=== PATIENT | female | born 1985 | race Hispanic/Latino ===

== ENCOUNTER 2020-08-19 17:15 | Emergency (ER) | payer SELFPAY ==
--- NOTE | 2020-08-19 19:55 | RAD REPORT ---
EXAM DESCRIPTION: CT - Head Brain Wo Cont - 08/19/2020 7:46 pm CLINICAL HISTORY: HEADACHE COMPARISON: No comparisons TECHNIQUE: Axial 5 mm thick images of the head were obtained without IV contrast. All CT scans are performed using dose optimization technique as appropriate and may include automated exposure control or mA/KV adjustment according to patient size. FINDINGS: No intracranial hemorrhage, mass, edema or shift of mid-line structures. No acute infarcti on changes seen. No abnormal extra-axial fluid collections. Ventricles are normal. Mastoid air cells and visualized portions of the paranasal sinuses are clear. No acute bony findings. IMPRESSION: Negative non-contrast CT head examination.
[2020-08-19] MEDS ORDERED: NA CHLORIDE 0.9% 1,000 ML ONE (19:56)
[2020-08-19] MEDS ORDERED: METOCLOPRAMIDE 10 MG/2mL INJ ONE (19:56)
[2020-08-19] MEDS ORDERED: DIPHENHYDRAMINE 50 MG/ML VIAL ONE (19:56)
--- NOTE | 2020-08-19 20:22 | RAD REPORT ---
EXAM DESCRIPTION: RAD - Chest Pa And Lat (2 Views) - 08/19/2020 7:55 pm CLINICAL HISTORY: COUGH COMPARISON: None TECHNIQUE: Frontal and lateral views of the chest were obtained. FINDINGS: The lungs are clear. Heart size is normal and central vasculature is within normal limit s. No pleural effusion or pneumothorax seen. No acute bony finding noted. No aortic abnormality. IMPRESSION: No acute cardiopulmonary process.
[2020-08-19 20:36] LABS: Protime INR 1.13
[2020-08-19 20:41] LABS: Absolute Lymphocytes (CBC) 0.7 K/uL (0.7-4.9); Basophils % 0.4 % (0-1.3); Hematocrit 37.6 % (36.0-45.0); Lymphocytes % 10.3 % (15.3-44.8); MPV 9.1 fL (7.6-11.3); RBC Red Blood Cell Count 4.61 M/uL (3.86-4.86)
[2020-08-19 20:45] LABS: SARS-COV-2 RT PCR POSITIVE (NEGATIVE)
[2020-08-19 20:46] LABS: BUN Blood Urea Nitrogen 13 mg/dL (7-18); Bicarbonate 27 mmol/L (21-32); Glucose Level 97 mg/dL (74-106); Potassium 3.7 mmol/L (3.5-5.1); Sodium Level 137 mmol/L (136-145)
--- NOTE | 2020-08-19 21:14 | EDPHYS ---
Physician Documentation [facility] Name: Fang Ewing Age: 34 yrs Sex: Female : 1985 Arrival Date: 08/19/2020 Time: 17:16 Bed 27 Private MD: ED Physician Santi Garza HPI: 08/19 19:40 This 34 yrs old Female presents to ER via Ambulatory with complaints of Chest cp Pain, Cough, Headache. 19:40 The patient complains of pain to the top of head. cp 19:40 The patient describes the headache as aching, constant. Onset: The symptoms/episode cp began/occurred 3 day(s) ago. The patient or guardian reports cough, with productive sputum, that is purulent. Onset: The symptoms/episode began/occurred 3 day(s) ago. Headache History: The patient has had previous headaches and this one is different than previous episodes. Associated signs and symptoms: Pertinent positives: chest pain, with cough, fever, sore throat, Pertinent negatives: diarrhea, vomiting. 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 - Social history:: Smoking status: Patient denies any tobacco usage or history of. ROS: 19:45 Constitutional: Positive for body aches, chills, Negative for fever, poor PO intake. cp 19:45 Eyes: Positive for photophobia, Negative for discharge, redness. cp 19:45 ENT: Positive for sore throat. 19:45 Neck: Negative for pain with movement, pain at rest, stiffness. 19:45 Cardiovascular: Positive for chest pain, with cough, Negative for edema, palpitations. 19:45 Respiratory: Positive for cough, Negative for wheezing. 19:45 Abdomen/GI: Negative for abdominal pain, nausea, vomiting, and diarrhea. 19:45 Neuro: Positive for headache, Negative for altered mental status, weakness. 19:45 All other systems are negative. Exam: 19:50 Constitutional: The patient appears in no acute distress, alert, awake, cp non-diaphoretic, non-toxic, well developed, well nourished, obese. 19:50 Head/Face: Normocephalic, atraumatic. cp 19:50 Eyes: Periorbital structures: appear normal, Pupils: equal, round, and reactive to cp light and accomodation, Extraocular movements: intact throughout, Conjunctiva: normal, no exudate, no injection, Sclera: no appreciated abnormality, Lids and lashes: appear normal, bilaterally. 19:50 ENT: External ear(s): are unremarkable, Ear canal(s): are normal, clear, TM's: cp dullness, bilaterally, Nose: is normal, Mouth: Lips: moist, Oral mucosa: moist, Posterior pharynx: Airway: no evidence of obstruction, patent, Tonsils: no enlargement, no exudate, swelling, is not appreciated, erythema, that is mild, exudate, is not appreciated. 19:50 Neck: ROM/movement: is normal, is supple, without pain, no range of motions limitations, no meningismus, no nuchal rigidity, Lymph nodes: no appreciated lymphadenopathy. 19:50 Chest/axilla: Inspection: normal. 19:50 Cardiovascular: Rate: tachycardic, Rhythm: regular, Edema: is not appreciated, JVD: is not appreciated. 19:50 Respiratory: the patient does not display signs of respiratory distress, Respirations: normal, no use of accessory muscles, no retractions, labored breathing, is not present, Breath sounds: bronchial sounds, that are mild, are heard diffusely, decreased breath sounds, are not appreciated, stridor, is not appreciated, + upper airway congestion. wheezing: is not appreciated. 19:50 Abdomen/GI: Inspection: abdomen appears normal, Palpation: abdomen is soft and non-tender, in all quadrants. 19:50 Back: pain, is absent, ROM is normal. 19:50 Skin: cellulitis, is not appreciated, no rash present. 19:50 Neuro: Orientation: to person, place \T\ time. Mentation: is normal, Cerebellar function: is grossly normal, Motor: moves all fours, strength is normal, Sensation: is normal. Vital Signs: 17:42 BP 127 / 93; Pulse 118; Resp 20; Temp 99.1(TE); Pulse Ox 100% on R/A; Weight 99.34 kg; tw2 Height 5 ft. 0 in. (152.40 cm) (R); Pain 9/10; 20:20 BP 131 / 76; Pulse 106; Resp 16; Pulse Ox 99% on R/A; jm8 21:50 BP 124 / 78; Pulse 94; Resp 16; Pulse Ox 99% on R/A; jm8 17:42 Body Mass Index 42.77 (99.34 kg, 152.40 cm) tw2 17:42 headache tw2 MDM: 19:31 Patient medically screened. cp 20:00 Differential diagnosis: bronchitis, flu, URI, meningitis, meningoencephalitis, cp migraine, tension headache. 21:12 Data reviewed: vital signs, nurses notes, lab test result(s), radiologic studies, CT cp scan, plain films. Test interpretation: by ED physician or midlevel provider: plain radiologic studies. Counseling: I had a detailed discussion with the patient and/or guardian regarding: the historical points, exam findings, and any diagnostic results supporting the discharge/admit diagnosis, lab results, radiology results, to return to the emergency department if symptoms worsen or persist or if there are any questions or concerns that arise at home. Response to treatment: the patient's symptoms have markedly improved after treatment, VSS. Patient observed resting comfortably in exam room and reports headache and cough improved. Patient appears non-toxic and no signs of respiratory distress, and as a result, I will discharge patient. 08/19 19:34 Order name: Strep cp 08/19 19:34 Order name: CBC with Diff; Complete Time: 20:47 cp 08/19 20:47 Interpretation: Normal except: TREVOR% 82.1; LYM% 10.3. cp 08/19 19:34 Order name: BMP; Complete Time: 20:47 cp 08/19 20:49 Interpretation: Reviewed. 08/19 19:34 Order name: PT-INR; Complete Time: 20:47 cp 08/19 20:48 Interpretation: Reviewed. 08/19 19:34 Order name: XRAY Chest Pa And Lat (2 Views); Complete Time: 20:24 cp 08/19 20:24 Interpretation: Report reviewed. 08/19 19:34 Order name: CT Head Brain wo Cont; Complete Time: 20:15 cp 08/19 20:15 Interpretation: Report reviewed. 08/19 20:25 Order name: COVID-19/FLU A+B; Complete Time: 20:47 EDMS 08/19 21:00 Order name: Throat Culture EDHI Administered Medications: Discontinued: NS 0.9% 1000 ml IV at 1 bolus Per protocol; 1000 mL bolus 20:13 Drug: Benadryl (diphenhydrAMINE) 25 mg Route: IVP; Site: right antecubital; jm8 21:39 Follow up: Response: No adverse reaction; Pain is decreased jm8 20:14 Drug: NS 0.9% 1000 ml Route: IV; Rate: 1 bolus; Site: right antecubital; jm8 20:14 Drug: Reglan (metoCLOPramide) 10 mg Route: IVP; Site: right antecubital; jm8 21:39 Follow up: Response: No adverse reaction; Pain is decreased 8 21:07 Drug: SOLU-Medrol (methylPrednisoLONE) 125 mg Route: IVP; Site: right antecubital; jm8 21:39 Follow up: Response: No adverse reaction [facility] Disposition: 22:00 Chart complete. 08/20 06:36 Co-signature as Attending Physician, Santi Garza MD. 7 Disposition: 08/19/20 21:13 Discharged to Home. Impression: Headache, Coronavirus infection, unspecified. - Condition is Stable. - Discharge Instructions: Migraine Headache, COVID-19. - Prescriptions for Prednisone 20 mg Oral Tablet - take 1 tablet by ORAL route every 12 hours for 5 days then 1/2 tablet every twelve hours for 5 days; 15 tablet. Albuterol Sulfate 90 mcg/actuation - inhale 1-2 puff by INHALATION route every 4-6 hours; 1 Inhaler. Tessalon Perles 100 mg Oral Capsule - take 2 capsule by ORAL route every 8 hours As needed; 30 capsule. Zithromax Z- Fernando 250 mg Oral Tablet - take 1 tablet by ORAL route as directed for 5 days Day 1 - take two (2) tablets one time. Day 2, 3, 4 , 5 take one (1) tablet once daily.; 6 tablet. - Medication Reconciliation Form, Thank You Letter, Antibiotic Education, Prescription Opioid Use form. - Follow up: Private Physician; When: 2 - 3 days; Reason: Worsening of condition. - Problem is new. - Symptoms have improved. Signatures: Dispatcher [employer] EDHI Moisés Villar PA PA cp Kimberlyn Hutson, RN RN tw2 Santi Garza MD MD mh7 Chidi Stone RN RN jm8 Corrections: (The following items were deleted from the chart) 08/19 19:32 17:48 Influenza Screen (A ordered. EDHI EDMS 19: 17:49 Influenza Screen (A \T\ B)+BA.LAB.BRZ ordered. [facility] EDHI 21:52 21:13 08/19/2020 21:13 Discharged to Home. Impression: Headache; Coronavirus infection, jm8 unspecified. Condition is Stable. Forms are Medication Reconciliation Form, Thank You Letter, Antibiotic Education, Prescription Opioid Use. Follow up: Private Physician; When: 2 - 3 days; Reason: Worsening of condition. Problem is new. Symptoms have improved. cp
--- NOTE | 2020-08-19 21:14 | ER ---
Nurse's Notes [facility] Name: Fang Ewing Age: 34 yrs Sex: Female : 1985 Arrival Date: 08/19/2020 Time: 17:16 Bed 27 Private MD: Diagnosis: Headache;Coronavirus infection, unspecified Presentation: 08/19 17:42 Chief complaint: Patient states: i have a headache since Sunday night, i am congested, tw2 if i take a deep breath it hurts my chest, my body aches, i feel super hot but then i get chills. Coronavirus screen: chills, cough unrelated to allergies, muscle pain, runny nose, shaking with chills, Client presents with at least one sign or symptom that may indicate coronavirus-19. Standard/surgical mask placed on the client. Provider contacted for isolation considerations. Ebola Screen: Patient denies travel to an Ebola-affected area in the 21 days before illness onset. Initial Sepsis Screen: Does the patient meet any 2 criteria? Yes No. Patient's initial sepsis screen is negative. Does the patient have a suspected source of infection? No. Patient's initial sepsis screen is negative. Risk Assessment: Do you want to hurt yourself or someone else? Patient reports no desire to harm self or others. Onset of symptoms was August 19, 2020. 17:42 Method Of Arrival: Ambulatory tw2 17:42 Acuity: BAR 3 tw2 Triage Assessment: 17:45 General: Appears in no apparent distress. uncomfortable, obese, well groomed, Behavior tw2 is calm, cooperative, appropriate for age. Pain: Complains of pain in forehead. Neuro: Reports headache. Cardiovascular: Reports cough and "pain with deep breath". Respiratory: Reports cough that is non-productive. 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 - Social history:: Smoking status: Patient denies any tobacco usage or history of. Screenin:33 Abuse screen: Denies threats or abuse. Denies injuries from another. Nutritional jm8 screening: No deficits noted. Tuberculosis screening: No symptoms or risk factors identified. Fall Risk None identified. Assessment: 19:22 General: Appears in no apparent distress. uncomfortable, Behavior is calm, cooperative, jm8 appropriate for age. Pain: Complains of pain in face and chest and forehead Pain currently is 10 out of 10 on a pain scale. Pain began 2 days ago Also complains of photophobia. Neuro: Level of Consciousness is awake, alert, obeys commands, Oriented to person, place, time, Reports headache frontal area. Cardiovascular: No deficits noted. Cardiovascular: Reports chest pain. Respiratory: Reports shortness of breath cough that is non-productive, Airway is patent Trachea midline Respiratory effort is even, unlabored. Respiratory: Reports chills. GI: No deficits noted. : No deficits noted. EENT: No deficits noted. Derm: No deficits noted. Musculoskeletal: No deficits noted. 19:34 Pain: Pain does not radiate. jm8 21:12 Reassessment: Patient appears in no apparent distress at this time. No changes from jm8 previously documented assessment. Patient and/or family updated on plan of care and expected duration. Pain level reassessed. Patient states feeling better. Patient states symptoms have improved. Vital Signs: 17:42 BP 127 / 93; Pulse 118; Resp 20; Temp 99.1(TE); Pulse Ox 100% on R/A; Weight 99.34 kg; tw2 Height 5 ft. 0 in. (152.40 cm) (R); Pain 9/10; 20:20 BP 131 / 76; Pulse 106; Resp 16; Pulse Ox 99% on R/A; jm8 21:50 BP 124 / 78; Pulse 94; Resp 16; Pulse Ox 99% on R/A; jm8 17:42 Body Mass Index 42.77 (99.34 kg, 152.40 cm) tw2 17:42 headache tw2 ED Course: 17:16 Patient arrived in ED. mr 17:44 Triage completed. tw2 17:46 Arm band placed on. tw2 19:17 Moisés Villar PA is PHCP. cp 19:17 Santi Garza MD is Attending Physician. cp 19:33 Patient maintains SpO2 saturation greater than 95% on room air. jm8 19:34 Patient has correct armband on for positive identification. Bed in low position. Call jm8 light in reach. Side rails up X2. Adult w/ patient. patient monitor on. Pulse ox on. NIBP on. 19:46 CT Head Brain wo Cont In Process Unspecified. EDMS 19:52 XRAY Chest Pa And Lat (2 Views) In Process Unspecified. EDMS 20:14 PT-INR Sent. jm8 20:14 BMP Sent. jm8 20:14 CBC with Diff Sent. jm8 20:14 Strep Sent. jm8 20:15 Inserted saline lock: 20 gauge in right antecubital area, using aseptic technique. jm8 21:51 IV discontinued, intact, bleeding controlled, No redness/swelling at site. jm8 21:51 No provider procedures requiring assistance completed. jm8 Administered Medications: Discontinued: NS 0.9% 1000 ml IV at 1 bolus Per protocol; 1000 mL bolus 20:13 Drug: Benadryl (diphenhydrAMINE) 25 mg Route: IVP; Site: right antecubital; jm8 21:39 Follow up: Response: No adverse reaction; Pain is decreased jm8 20:14 Drug: NS 0.9% 1000 ml Route: IV; Rate: 1 bolus; Site: right antecubital; jm8 20:14 Drug: Reglan (metoCLOPramide) 10 mg Route: IVP; Site: right antecubital; jm8 21:39 Follow up: Response: No adverse reaction; Pain is decreased jm8 21:07 Drug: SOLU-Medrol (methylPrednisoLONE) 125 mg Route: IVP; Site: right antecubital; jm8 21:39 Follow up: Response: No adverse reaction [facility] Outcome: 21:13 Discharge ordered by . genet 21:51 Discharged to home jm8 21:51 Condition: good 21:51 Discharge instructions given to patient, family, Instructed on discharge instructions, follow up and referral plans. medication usage, Demonstrated understanding of instructions, follow-up care, medications, Prescriptions given X 4. 21:52 Patient left the ED. jm8 Signatures: Dispatcher [employer] MELANIE Kathryn Baig Miosés Ramos PA PA cp Wise, Tara, RN RN tw2 Chidi Stone RN RN jm8
[2020-08-19] MEDS ORDERED: METHYLPREDNISOLONE 125 MG INJ ONE (21:25)
[2020-08-19 22:08] VITALS: TEMP 99.1
[2020-08-19 22:09] VITALS: O2SAT 99
[2020-08-19 22:10] VITALS: BP 124/78
== END 2020-08-19 21:52 | disposition home or self-care (01) ==
LOC: ER 17:15
DX: U07.1 COVID-19 (principal)
CPT/HCPCS: 0240U; 36415; 70450; 71046; 80048; 85025; 85610; 87070; 87081; 96374; 96375; 99285; J1200; J2765; J2930; J7030

== ENCOUNTER 2020-08-24 14:43 | Emergency (ER) | payer SELFPAY ==
--- NOTE | 2020-08-24 17:50 | RAD REPORT ---
EXAM DESCRIPTION: Edy Single View08/24/2020 4:47 pm CLINICAL HISTORY: Shortness of breath COMPARISON: none FINDINGS: [id number] bilateral lung opacities. The heart is normal size IMPRESSION: Mild to moderate bilateral pulmonary opacities probably pneumonia
[2020-08-24 20:11] LABS: Absolute Lymphocytes (CBC) 0.6 K/uL (0.7-4.9); Basophils % 0.3 % (0-1.3); Hematocrit 38.2 % (36.0-45.0); MPV 8.5 fL (7.6-11.3); RBC Red Blood Cell Count 4.73 M/uL (3.86-4.86)
[2020-08-24] MEDS ORDERED: dexAMETHasone 10 MG/ML VIAL ONE (20:22)
[2020-08-24 20:23] LABS: Potassium 3.8 mmol/L (3.5-5.1)
--- NOTE | 2020-08-24 20:58 | RAD REPORT ---
EXAM DESCRIPTION: CT - Chest For Pe Angio - 08/24/2020 8:49 pm CLINICAL HISTORY: Shortness of breath COMPARISON: August 24, 2020 chest x-ray TECHNIQUE: Dynamically enhanced axial 3 mm thick images of the chest were obtained during administra tion of <100> mL Isovue 370 IV contrast. Coronal and oblique reconstruction images were generated and reviewed. Exam utilizes a protocol for optimal evaluation of pulmonary arterial tree. Maximum intensity projections 3D imaging was utilized All CT scans are performed using dose optimization technique as appropriate and may include automated exposure control or mA/KV adjustment according to patient size. FINDINGS: A pulmonary embolus is not seen. A thoracic aortic aneurysm is not noted. A pleural effusion is not seen. A pericardial effusion is not seen. Mild to moderate bilateral ground-glass opacities IMPRESSION: Negative for a pulmonary embolism. Mild to moderate bilateral ground-glass opacities within the lungs may indicate Covid pneumonia
--- NOTE | 2020-08-24 21:08 | ER ---
Nurse's Notes [facility] Name: Fang Ewing Age: 34 yrs Sex: Female : 1985 Arrival Date: 08/24/2020 Time: 14:44 Bed 2 Private MD: Diagnosis: Coronavirus infection, unspecified;Viral pneumonia, unspecified Presentation: 08/24 15:08 Chief complaint: Patient states: it got worse about 3 hours Spouse and/or significant tw2 other states: o2 has been 88% \\T\\ 91% all day. Coronavirus screen: Client presents with at least one sign or symptom that may indicate coronavirus-19. Standard/surgical mask placed on the client. Provider contacted for isolation considerations. Client reports previous positive COVID test result. Date of collection: August 19, 2020. Ebola Screen: Patient denies travel to an Ebola-affected area in the 21 days before illness onset. Initial Sepsis Screen: Does the patient meet any 2 criteria? RR > 20 per min. HR > 90 bpm. Yes Does the patient have a suspected source of infection? Yes: Productive cough/pneumonia Other: + COVID on . Risk Assessment: Do you want to hurt yourself or someone else? Patient reports no desire to harm self or others. Onset of symptoms was August 24, 2020. 15:08 Method Of Arrival: Wheelchair tw2 15:08 Acuity: BAR 2 tw2 15:11 Chief complaint: Patient states: i was just here Sunday and the inhaler helps but i tw2 just have gotten worse. Triage Assessment: 15:08 General: Appears in no apparent distress. obese, well groomed, Behavior is anxious. tw2 Pain: Denies pain. Respiratory: Reports shortness of breath at rest on exertion cough that is non-productive, Onset: The symptoms/episode began/occurred "3 hours ago it got worse", the patient has moderate shortness of breath. 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 - Social history:: Smoking status: . Screenin:56 Abuse screen: Denies threats or abuse. Nutritional screening: No deficits noted. ea Tuberculosis screening: No symptoms or risk factors identified. Fall Risk None identified. Assessment: 19:55 General: Appears uncomfortable, Behavior is restless. Pain: Denies pain. Neuro: Level ea of Consciousness is awake, alert, obeys commands, Oriented to person, place, time. Cardiovascular: Patient's skin is warm and dry. Respiratory: Airway is patent Respiratory effort is even, labored, Respiratory pattern is regular, symmetrical. Derm: Skin is pink, warm \\T\\ dry. 20:59 Reassessment: Patient and/or family updated on plan of care and expected duration. Pain ad5 level reassessed. Pt reports improvement in s/s. Resp with ease at this time. VSS. HRR on CM, skin pwd. Pt denies needs or c/o at this time. Patient states feeling better. Pain: Denies pain. 21:00 Respiratory: Breath sounds are clear. ad5 21:00 Cardiovascular: Rhythm is sinus rhythm. ad5 21:08 Reassessment: Pt ambulated approximately 50 ft, O2 sats after ambulation decreased to mg2 91% RA. 21:43 Reassessment: Patient appears in no apparent distress at this time. No changes from ad5 previously documented assessment. Pt denies new or worsening c/o. Resp with ease, skin pwd. HRR on CM. S.O. at bedside. Patient states symptoms have improved. Vital Signs: 15:08 BP 110 / 86; Pulse 128; Resp 22; Temp 97.9(TE); Pulse Ox 98% on R/A; tw2 17:51 Pulse 108; Resp 19; Pulse Ox 97% on R/A; tw2 20:07 BP 119 / 89; Pulse 111; Resp 22; Pulse Ox 96% on R/A; mg2 21:00 BP 118 / 58; Pulse 98; Resp 18; Pulse Ox 95% on R/A; ad5 21:08 Resp 25; Pulse Ox 91% on R/A; mg2 21:14 BP 121 / 69; Pulse 73; Resp 25; Pulse Ox 99% ; mg2 21:45 BP 113 / 61; Pulse 99; Resp 16; Pulse Ox 96% on R/A; ad5 17:51 pt states "i am feeling better and have had my xray done", provider notified. tw2 ED Course: 14:44 Patient arrived in ED. am2 15:10 Triage completed. tw2 15:10 Arm band placed on. tw2 15:26 Kelsey Mays FNP-C is PHCP. kb 15:26 Moisés Vallejo MD is Attending Physician. kb 16:46 Chest Single View XRAY In Process Unspecified. EDMS 19:49 Kelsey Mays FNP-C is PHCP. kb 19:49 Moisés Vallejo MD is Attending Physician. kb 19:52 Maury Arias, FRANCES is Primary Nurse. mg2 19:56 Patient has correct armband on for positive identification. Bed in low position. Call ea light in reach. 20:06 No provider procedures requiring assistance completed. Inserted saline lock: 20 gauge mg2 in right antecubital area, using aseptic technique. Blood collected. by FRANCES Small. 20:49 CT Chest For PE Angio In Process Unspecified. EDMS 21:12 Primary Nurse role handed off by Maury Arias RN ad5 21:12 Geovanny Henry is Primary Nurse. ad5 21:44 IV discontinued, intact, bleeding controlled, No redness/swelling at site. Pressure ad5 dressing applied. Administered Medications: 20:06 Drug: Decadron - Dexamethasone 10 mg Route: IVP; Site: right antecubital; mg2 21:45 Follow up: BP 113 / 61; Pulse 99 bpm; Resp 16 bpm; Pulse Ox 96% RA ad5 21:45 Follow up: Response: No adverse reaction ad5 Outcome: 21:07 Discharge ordered by MD. kb 21:44 Discharged to home ambulatory, with significant other. ad5 21:44 Condition: stable 21:44 Discharge instructions given to patient, Instructed on discharge instructions, follow up and referral plans. Demonstrated understanding of instructions, follow-up care. 21:46 Patient left the ED. ad5 Signatures: Dispatcher [employer] EDNE Kelsey Mays FNP-C FNP-Kimberlyn Vázquez RN RN tw2 Cecilia Ron am2 Joi Pope RN RN Maury Arias RN RN mg2 Geovanny Henry ad5 Corrections: (The following items were deleted from the chart) 15:12 15:08 Initial Sepsis Screen: Does the patient meet any 2 criteria? No. Patient's tw2 initial sepsis screen is negative. Does the patient have a suspected source of infection? No. Patient's initial sepsis screen is negative. tw2 21:14 21:08 Pulse Ox 91% RA; mg2 mg2
--- NOTE | 2020-08-24 21:08 | EDPHYS ---
Physician Documentation [facility] Name: Fang Ewing Age: 34 yrs Sex: Female : 1985 Arrival Date: 08/24/2020 Time: 14:44 Bed 2 Private MD: ED Physician Moisés Vallejo HPI: 08/24 21:05 This 34 yrs old Female presents to ER via Wheelchair with complaints of kb Breathing Difficulty, Shortness Of Breath, low O2. 21:05 The patient has shortness of breath at rest, with light activity. Onset: The kb symptoms/episode began/occurred 4 day(s) ago, and became worse today. Duration: The symptoms are continuous. The patient's shortness of breath is aggravated by exertion, is alleviated by nothing. Associated signs and symptoms: Pertinent positives: non-productive cough. Severity of symptoms: At their worst the symptoms were moderate in the emergency department the symptoms are unchanged. The patient has not experienced similar symptoms in the past. The patient has been recently seen by a physician:. Pt reports she was diagnosed with covid 4 days ago. Shortness of breath got worse today. . 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 - Social history:: Smoking status: . ROS: 21:05 Cardiovascular: Negative for chest pain, palpitations, and edema, Abdomen/GI: Negative kb for abdominal pain, nausea, vomiting, diarrhea, and constipation, MS/Extremity: Negative for injury and deformity, Skin: Negative for injury, rash, and discoloration, Neuro: Negative for headache, weakness, numbness, tingling, and seizure. 21:05 Constitutional: Positive for malaise. 21:05 Respiratory: Positive for cough, dyspnea on exertion, shortness of breath. Exam: 21:05 Constitutional: This is a well developed, well nourished patient who is awake, alert, kb and in no acute distress. Head/Face: Normocephalic, atraumatic. Cardiovascular: Regular rate and rhythm with a normal S1 and S2. No gallops, murmurs, or rubs. No pulse deficits. Respiratory: Respirations even and unlabored. No increased work of breathing, no retractions or nasal flaring. Abdomen/GI: Soft, non-tender. No distention Skin: Warm, dry with normal turgor. Normal color. MS/ Extremity: Pulses equal, no cyanosis. Neurovascular intact. Full, normal range of motion. Neuro: Awake and alert, GCS 15, oriented to person, place, time, and situation. Moves all extremities. Normal gait. Vital Signs: 15:08 BP 110 / 86; Pulse 128; Resp 22; Temp 97.9(TE); Pulse Ox 98% on R/A; tw2 17:51 Pulse 108; Resp 19; Pulse Ox 97% on R/A; tw2 20:07 BP 119 / 89; Pulse 111; Resp 22; Pulse Ox 96% on R/A; mg2 21:00 BP 118 / 58; Pulse 98; Resp 18; Pulse Ox 95% on R/A; ad5 21:08 Resp 25; Pulse Ox 91% on R/A; mg2 21:14 BP 121 / 69; Pulse 73; Resp 25; Pulse Ox 99% ; mg2 21:45 BP 113 / 61; Pulse 99; Resp 16; Pulse Ox 96% on R/A; ad5 17:51 pt states "i am feeling better and have had my xray done", provider notified. tw2 MDM: 19:49 Patient medically screened. kb 21:05 Data reviewed: vital signs, nurses notes. Data interpreted: Pulse oximetry: on room air kb is 96 %. Interpretation: normal. Counseling: I had a detailed discussion with the patient and/or guardian regarding: the historical points, exam findings, and any diagnostic results supporting the discharge/admit diagnosis, lab results, radiology results, the need for outpatient follow up, a family practitioner, to return to the emergency department if symptoms worsen or persist or if there are any questions or concerns that arise at home. 08/24 19:50 Order name: CBC with Diff kb 08/24 19:50 Order name: Basic Metabolic Panel kb 08/24 15:26 Order name: Chest Single View XRAY; Complete Time: 17:56 kb 08/24 19:51 Order name: CBC with Automated Diff; Complete Time: 20:18 EDMS 08/24 19:51 Order name: Basic Metabolic Panel; Complete Time: 20:24 EDMS 08/24 20:01 Order name: CT Chest For PE Angio; Complete Time: 21:02 kb 08/24 19:50 Order name: IV Start; Complete Time: 20:02 kb Administered Medications: 20:06 Drug: Decadron - Dexamethasone 10 mg Route: IVP; Site: right antecubital; mg2 21:45 Follow up: BP 113 / 61; Pulse 99 bpm; Resp 16 bpm; Pulse Ox 96% RA ad5 21:45 Follow up: Response: No adverse reaction ad5 Disposition: 08/25 11:24 Co-signature as Attending Physician, Moisés Vallejo MD I agree with the assessment and [facility]. Disposition: 08/24/20 21:07 Discharged to Home. Impression: Coronavirus infection, unspecified, Viral pneumonia, unspecified. - Condition is Stable. - Discharge Instructions: Viral Respiratory Infection, [id number]-[id number], COVID-19. - Medication Reconciliation Form, Thank You Letter, Antibiotic Education, Prescription Opioid Use form. - Follow up: Emergency Department; When: As needed; Reason: Worsening of condition. Follow up: Private Physician; When: 2 - 3 days; Reason: Recheck today's complaints, Continuance of care, Re-evaluation by your physician. Signatures: Dispatcher [employer] EDAR Kelsey Mays, JANET-C JANET-Moisés Garcia MD MD cha Wise, Tara, RN RN tw2 Maury Arias RN RN mg2 Geovanny Henry ad5 Corrections: (The following items were deleted from the chart) 08/24 21:08 21:07 08/24/2020 21:07 Discharged to Home. Impression: Coronavirus infection, kb unspecified. Condition is Stable. Forms are Medication Reconciliation Form, Thank You Letter, Antibiotic Education, Prescription Opioid Use. Follow up: Emergency Department; When: As needed; Reason: Worsening of condition. Follow up: Private Physician; When: 2 - 3 days; Reason: Recheck today's complaints, Continuance of care, Re-evaluation by your physician. kb 21:08 21:08 08/24/2020 21:07 Discharged to Home. Impression: Coronavirus infection, kb unspecified; Pneumonia, unspecified organism. Condition is Stable. Forms are Medication Reconciliation Form, Thank You Letter, Antibiotic Education, Prescription Opioid Use. Follow up: Emergency Department; When: As needed; Reason: Worsening of condition. Follow up: Private Physician; When: 2 - 3 days; Reason: Recheck today's complaints, Continuance of care, Re-evaluation by your physician. kb 21:46 21:08 08/24/2020 21:07 Discharged to Home. Impression: Coronavirus infection, ad5 unspecified; Viral pneumonia, unspecified. Condition is Stable. Discharge Instructions: Viral Respiratory Infection, [id number], COVID-19. Forms are Medication Reconciliation Form, Thank You Letter, Antibiotic Education, Prescription Opioid Use. Follow up: Emergency Department; When: As needed; Reason: Worsening of condition. Follow up: Private Physician; When: 2 - 3 days; Reason: Recheck today's complaints, Continuance of care, Re-evaluation by your physician. kb
[2020-08-24 22:12] VITALS: TEMP 97.9
[2020-08-24 22:21] VITALS: BP 113/61; O2SAT 96
== END 2020-08-24 21:46 | disposition home or self-care (01) ==
LOC: ER 14:43
DX: U07.1 COVID-19 (principal); J12.82 Pneumonia due to coronavirus disease 2019
CPT/HCPCS: 36415; 71045; 71275; 80048; 85025; 96374; 99284; J1100; Q9967

== ENCOUNTER 2022-11-18 04:30 | Emergency (ER) | payer SELFPAY ==
[2022-11-18 05:04] LABS: Absolute Lymphocytes (CBC) 1.6 K/uL (0.7-4.9); Hematocrit 37.8 % (36.0-45.0); MCV 81.6 fL (80-100); MPV 8.5 fL (7.6-11.3); RBC Red Blood Cell Count 4.63 M/uL (3.86-4.86)
[2022-11-18 05:24] LABS: ALT/SGPT 30 U/L (13-56); AST/SGOT 6 U/L (15-37); Albumin 3.3 g/dL (3.4-5.0); Alkaline Phosphatase 130 U/L (45-117); BUN Blood Urea Nitrogen 17 mg/dL (7-18); Bicarbonate 29 mEq/L (21-32); Bilirubin Total 0.2 mg/dL (0.2-1.0); Glomerular Filtration Rate 118 ml/min (=/>90); Glucose Level 113 mg/dL (74-106); Magnesium 2.3 mg/dL (1.6-2.4); NT PRO-BNP 29 pg/mL (<125); Potassium 3.5 mEq/L (3.5-5.1); Protein, Total 7.5 g/dL (6.4-8.2); Sodium Level 139 mEq/L (136-145)
[2022-11-18] MEDS ORDERED: NA CHLORIDE 0.9% 1,000 ML ONE (05:24)
[2022-11-18 05:26] LABS: Bilirubin Direct < 0.1 mg/dL (0-0.2); Bilirubin Indirect, Calculated ND mg/dL (0.2-0.8)
[2022-11-18 05:27] LABS: Troponin High Sensitivity < 3.0 pg/mL (<58.9)
[2022-11-18 05:47] LABS: Arterial Blood Carboxyhemoglob 0.8 % (0-1.5); Blood Gas Oxyhemoglobin 93.9 % (94-97); Blood O2 Saturation 96.2 % (92-98.5)
--- NOTE | 2022-11-18 06:48 | EDPHYS ---
Physician Documentation [facility] Name: Fang Ewing Age: 36 yrs Sex: Female : 1985 Arrival Date: 11/18/2022 Time: 04:30 Bed 6 Private MD: ED Physician Phil Gamez HPI: 11/18 05:35 This 36 yrs old Female presents to ER via EMS with complaints of Syncope. rt 05:35 Patient presents to the ED with a syncopal event. Patient felt weak, somewhat dizzy at rt about 11. She reported mild headache at that time. Just prior to arrival, patient has syncopal event, unclear how long she has been out for. Was reportedly having some twitching spells associated with that. Patient had subsequent return to baseline mental status. States that she feels well other than feeling mildly weak. Symptoms are moderate severity, no other aggravating alleviating factors. 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 - Social history:: Smoking status: Reported history of juuling and/or vaping. - Family history:: not pertinent. ROS: 05:35 Constitutional: Negative for fever, chills, and weight loss, Cardiovascular: Negative rt for chest pain, palpitations, and edema, Respiratory: Negative for shortness of breath, cough, wheezing, and pleuritic chest pain, Abdomen/GI: Negative for abdominal pain, nausea, vomiting, diarrhea, and constipation, MS/Extremity: Negative for injury and deformity, Skin: Negative for injury, rash, and discoloration, Psych: Negative for depression, anxiety, suicide ideation, homicidal ideation, and hallucinations. 05:35 Neuro: Positive for headache, syncope. Exam: 05:35 Constitutional: This is a well developed, well nourished patient who is awake, alert, rt and in no acute distress. Neck: Trachea midline, no thyromegaly or masses palpated, and no cervical lymphadenopathy. Supple, full range of motion without nuchal rigidity, or vertebral point tenderness. No Meningismus. Chest/axilla: Normal chest wall appearance and motion. Nontender with no deformity. No lesions are appreciated. Cardiovascular: Regular rate and rhythm with a normal S1 and S2. No gallops, murmurs, or rubs. Normal PMI, no JVD. No pulse deficits. Respiratory: Lungs have equal breath sounds bilaterally, clear to auscultation and percussion. No rales, rhonchi or wheezes noted. No increased work of breathing, no retractions or nasal flaring. Abdomen/GI: Soft, non-tender, with normal bowel sounds. No distension or tympany. No guarding or rebound. No evidence of tenderness throughout. Back: No spinal tenderness. No costovertebral tenderness. Full range of motion. Skin: Warm, dry with normal turgor. Normal color with no rashes, no lesions, and no evidence of cellulitis. MS/ Extremity: Pulses equal, no cyanosis. Neurovascular intact. Full, normal range of motion. Neuro: Awake and alert, GCS 15, oriented to person, place, time, and situation. Cranial nerves II-XII grossly intact. Motor strength 5/5 in all extremities. Sensory grossly intact. Cerebellar exam normal. Normal gait. Psych: Awake, alert, with orientation to person, place and time. Behavior, mood, and affect are within normal limits. 05:35 ECG was reviewed by the Attending Physician. Vital Signs: 05:05 BP 102 / 88; Pulse 88; Resp 15; Pulse Ox 98% ; Weight 104.33 kg; Height 5 ft. 0 in. ; vc1 Pain 0/10; 06:20 Temp 97.8(TE); kd3 05:05 Body Mass Index 44.92 (104.33 kg, 152.4 cm) vc1 05:05 Pain Scale: Adult vc1 MDM: 04:42 Patient medically screened. rt 06:56 Differential Diagnosis Seizure, syncope, carbon monoxide poisoning, dysrhythmia. Data rt reviewed: vital signs. Consideration of Admission/Observation Escalation of care including admission/observation considered. I considered the following discharge prescriptions or medication management in the emergency department Medications were administered in the Emergency Department. See MAR. Independent interpretation of the following test(s) in the Emergency Department CT Scan: My interpretation is No hemorrhage seen on interpretation of the CT scan images. Counseling: I had a detailed discussion with the patient and/or guardian regarding: the historical points, exam findings, and any diagnostic results supporting the discharge/admit diagnosis, lab results, radiology results, the need for outpatient follow up. Response to treatment: the patient's symptoms have markedly improved after treatment. ED course: Normal EKG, normal labs, symptoms not consistent with a seizure, does not require further work-up for this. CT of the head is unremarkable, no elevated carboxyhemoglobin levels, stable for outpatient care, return precautions discussed. 11/18 04:42 Order name: Basic Metabolic Panel; Complete Time: 05:49 rt 11/18 04:42 Order name: CBC with Diff; Complete Time: 05:49 rt 11/18 04:42 Order name: LFT's; Complete Time: 05:49 rt 11/18 04:42 Order name: Magnesium; Complete Time: 05:49 rt 11/18 04:42 Order name: NT PRO-BNP; Complete Time: 05:49 rt 11/18 04:42 Order name: Troponin HS; Complete Time: 05:49 rt 11/18 04:42 Order name: Test, Serum; Complete Time: 05:49 rt 11/18 04:58 Order name: ABG; Complete Time: 05:49 rt 11/18 04:42 Order name: XRAY Chest (1 view) rt 11/18 04:42 Order name: CT Head Brain wo Cont rt 11/18 04:42 Order name: EKG; Complete Time: 04:42 rt 11/18 04:42 Order name: Cardiac monitoring; Complete Time: 05:10 rt 11/18 04:42 Order name: EKG - Nurse/Tech; Complete Time: 05:10 rt 11/18 04:42 Order name: IV Saline Lock; Complete Time: 05:10 rt 11/18 04:42 Order name: Labs collected and sent; Complete Time: 05:10 rt 11/18 04:42 Order name: O2 Per Protocol; Complete Time: 05:10 rt 11/18 04:42 Order name: O2 Sat Monitoring; Complete Time: 05:10 rt EC:35 Rate is 84 beats/min. Rhythm is regular, Normal Sinus Rhythm with No ectopy. QRS [place] rt is Normal. [place] interval is normal. QRS interval is normal. QT interval is normal. No Q waves. T waves are Normal. No ST changes noted. Interpreted by me. Administered Medications: 05:16 Drug: NS 0.9% IV 1000 ml Route: IV; Rate: 1 bolus; Site: right antecubital; vc1 07:18 Follow up: IV Status: Completed infusion; IV Intake: 120ml kd3 Disposition Summary: 11/18/22 06:47 Discharge Ordered Location: Home rt Problem: new rt Symptoms: are resolved rt Condition: Stable rt Diagnosis - Syncope rt Followup: rt - With: Private Physician - When: 2 - 3 days - Reason: Discharge Instructions: - Discharge Summary Sheet rt - Syncope rt Forms: - Work release form vc1 - Medication Reconciliation Form rt - Thank You Letter rt - Antibiotic Education rt - Prescription Opioid Use rt - Patient Portal Instructions rt Signatures: Dispatcher [employer] EDYvonne Berry RN RN vc1 Phil Gamez MD MD rt Deonna Narayanan RN kd3 Corrections: (The following items were deleted from the chart) 05:07 05:06 PSHx: None; vc1 vc1
--- NOTE | 2022-11-18 06:48 | ER ---
Nurse's Notes [facility] Name: Fang Ewing Age: 36 yrs Sex: Female : 1985 Arrival Date: 11/18/2022 Time: 04:30 Bed 6 Private MD: Diagnosis: Syncope Presentation: 11/18 05:03 Chief complaint: EMS states: pt started feeling faint after eating around 2300. Around vc1 0300 she started feeling faint again and the next thing she knows there's another officer waking her up. The officer said she was twitching and shaking. Pt patrol care was in park but she doesn't remember putting it in park. 05:05 Coronavirus screen: Client denies travel out of the [place] in the last 14 days. At this vc1 time, the client does not indicate any symptoms associated with coronavirus-19. Ebola Screen: Patient negative for fever greater than or equal to 101.5 degrees Fahrenheit, and additional compatible Ebola Virus Disease symptoms Patient denies exposure to infectious person. Patient denies travel to an Ebola-affected area in the 21 days before illness onset. No symptoms or risks identified at this time. 05:05 Method Of Arrival: EMS: [facility] vc1 05:05 Initial Sepsis Screen: Does the patient meet any 2 criteria? No. Patient's initial vc1 sepsis screen is negative. Does the patient have a suspected source of infection? No. Patient's initial sepsis screen is negative. Risk Assessment: Do you want to hurt yourself or someone else? Patient reports no desire to harm self or others. Onset of symptoms was November 18, 2022 at 03:00. 05:05 Acuity: BAR 3 vc1 05:08 Care prior to arrival: IV initiated. 20 GA, in the right antecubital area. vc1 Triage Assessment: 05:07 General: Appears in no apparent distress. comfortable, Behavior is calm, cooperative, vc1 appropriate for age. Pain: Denies pain. EENT: No deficits noted. No signs and/or symptoms were reported regarding the EENT system. Neuro: Castillo Agitation-Sedation Scale (RASS): 0 - Alert and Calm Level of Consciousness is awake, alert, obeys commands, Oriented to person, place, time, situation, Appropriate for age Reports a syncopal episode. Cardiovascular: No deficits noted. Respiratory: Airway is patent Respiratory effort is even, unlabored, Respiratory pattern is regular, symmetrical. GI: No deficits noted. No signs and/or symptoms were reported involving the gastrointestinal system. : No deficits noted. No signs and/or symptoms were reported regarding the genitourinary system. Derm: No deficits noted. No signs and/or symptoms reported regarding the dermatologic system. Musculoskeletal: No deficits noted. No signs and/or symptoms reported regarding the musculoskeletal system. 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 - Social history:: Smoking status: Reported history of juuling and/or vaping. - Family history:: not pertinent. Screenin:07 [facility] [place] ED Fall Risk Assessment (Adult) History of falling in the last 3 months, vc1 including since admission No falls in past 3 months (0 pts) Confusion or Disorientation No (0 pts) Intoxicated or Sedated No (0 pts) Impaired Gait No (0 pts) Mobility Assist Device Used No (0 pt) Altered Elimination No (0 pt) Score/Fall Risk Level 0 - 2 = Low Risk Oriented to surroundings, Maintained a safe environment, Educated pt \T\ family on fall prevention, incl call for assistance when getting out of bed. Abuse screen: Denies threats or abuse. Nutritional screening: No deficits noted. Tuberculosis screening: No symptoms or risk factors identified. Assessment: 05:09 Reassessment: See triage assessment. vc1 Vital Signs: 05:05 BP 102 / 88; Pulse 88; Resp 15; Pulse Ox 98% ; Weight 104.33 kg; Height 5 ft. 0 in. ; vc1 Pain 0/10; 06:20 Temp 97.8(TE); kd3 05:05 Body Mass Index 44.92 (104.33 kg, 152.4 cm) vc1 05:05 Pain Scale: Adult vc1 ED Course: 04:36 Patient arrived in ED. vc1 04:41 Phil Gamez MD is Attending Physician. rt 05:06 Triage completed. vc1 05:06 Arm band placed on right wrist. vc1 05:09 Patient has correct armband on for positive identification. Placed in gown. Bed in low vc1 position. Call light in reach. Client placed on continuous cardiac and pulse oximetry monitoring. NIBP monitoring applied. 05:09 Maintain EMS IV. Dressing intact. Good blood return noted. Site clean \T\ dry. Gauge \T\ vc 1 site: 20 Right AC. 05:26 XRAY Chest (1 view) In Process Unspecified. EDMS 05:50 CT Head Brain wo Cont In Process Unspecified. EDMS 06:05 Deonna Narayanan, RN is Primary Nurse. kd3 07:18 Provided Education on: . kd3 07:18 No provider procedures requiring assistance completed. IV discontinued, intact, kd3 bleeding controlled, No redness/swelling at site. Pressure dressing applied. Administered Medications: 05:16 Drug: NS 0.9% IV 1000 ml Route: IV; Rate: 1 bolus; Site: right antecubital; vc1 07:18 Follow up: IV Status: Completed infusion; IV Intake: 120ml kd3 Medication: 05:08 VIS not applicable for this client. vc1 Intake: 07:18 IV: 120ml; Total: 120ml. kd3 Outcome: 06:47 Discharge ordered by MD. rt 07:18 Discharged to home ambulatory. kd3 07:18 Condition: stable 07:18 Discharge instructions given to patient, family, Instructed on discharge instructions, follow up and referral plans. Demonstrated understanding of instructions, follow-up care. 07:18 Patient left the ED. kd3 Signatures: Dispatcher [employer] Deonna Jha RN RN kd3 Yvonne Del Castillo RN RN vc1 Phil Gamez MD MD rt Corrections: (The following items were deleted from the chart) 05:07 05:06 PSHx: None; vc1 vc1
[2022-11-18 07:46] VITALS: BP 102/88; O2SAT 98
[2022-11-18 07:47] VITALS: TEMP 97.8
--- NOTE | 2022-11-19 13:12 | EKG ---
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
--- NOTE | 2022-11-19 15:47 | RAD REPORT ---
EXAM DESCRIPTION: CT Head Without Intravenous Contrast CLINICAL HISTORY: The patient is 36 years old and is Female; syncope, jean-baptiste TECHNIQUE: Axial computed tomography images of the head/brain without intravenous contrast. Sagitt al and coronal reformatted images were created and reviewed. This CT exam was performed using one o r more of the following dose reduction techniques: automated exposure control, adjustment of the mA and/or kV according to patient size, and/or use of iterative reconstruction technique. COMPARISON: No relevant prior studies available. FINDINGS: Brain: Unremarkable. No hemorrhage. No significant white matter disease. No edema. Ventricles: Unremarkable. No ventriculomegaly. Bones/joints: Unremarkable. No acute fracture. Soft tissues: Unremarkable. Sinuses: Unremarkable as visualized. Mastoid air cells: Unremarkable as visualized. No mastoid effusion. IMPRESSION: No acute intracranial abnormality. Electronically signed by: Thien Gracia MD 11/18/2022 6:39 AM CDT Due to temporary technical issues with the PACS/Fluency reporting system, reports are being signed by the in house radiologists without review as a courtesy to insure prompt reporting. The interpreting radiologist is fully responsible for the content of the report.
--- NOTE | 2022-11-19 15:49 | RAD REPORT ---
EXAM DESCRIPTION: XR Chest, 1 View CLINICAL HISTORY: The patient is 36 years old and is Female; syncope TECHNIQUE: Frontal view of the chest. COMPARISON: No relevant prior studies available. FINDINGS: Lungs: Unremarkable. No consolidation. Pleural space: Unremarkable. No pneumothorax. Heart: Unremarkable. Mediastinum: Unremarkable. Bones/joints: Unremarkable. IMPRESSION: No acute findings in the chest. Electronically signed by: Thien Gracia MD 11/18/2022 6:21 AM CDT Due to temporary technical issues with the PACS/Fluency reporting system, reports are being signed by the in house radiologists without review as a courtesy to insure prompt reporting. The interpreting radiologist is fully responsible for the content of the report.
== END 2022-11-18 07:18 | disposition home or self-care (01) ==
LOC: ER 04:30
DX: R55 Syncope and collapse (principal)
CPT/HCPCS: 36415; 70450; 71045; 80048; 80076; 82805; 83735; 83880; 84484; 84703; 85025; 93005; 96360; 96361; 99284; J7030

== ENCOUNTER 2023-10-08 09:20 | Emergency (ER) | payer SELFPAY, OTHER ==
--- OUTSIDE RECORDS SUMMARY | 2023-10-08 09:24 | XMS REPORT | Continuity of Care Document ---
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 Ordering Clinician Indication Dosage Frequency Signature (SIG) Comments Components Source Macrobid 100 mg capsule Take 1 capsule every 12 hours by oral route for 7 days. Macrobid 100 mg capsule Take 1 capsule every 12 hours by oral route for 7 days. No 1capsul e(s) Q12H Macrobid 100 mg capsule Take 1 capsule every 12 hours by oral route for 7 days. [facility] Vital Signs Vital Name Observation Time Observation Value Comments S ource BMI (Body Mass Index) 2022-11-30 00:00:00 45.3 kg/m2 [facility] Height 2022-11-30 00:00:00 60 [in_i] [facility] BP Systolic 2022-11-30 00:00:00 120 mm[Hg] [facility] BP Diastolic 2022-11-30 00:00:00 85 mm[Hg] [facility] Body Weight 2022-11-30 00:00:00 3712 [oz_av] [facility] Procedures Procedure Date / Time Performed Performing Clinicia n Source Hysterectomy 2014-04-23 00:00:00 [facility] Delivery [facility] Plan of Care Planned Activity Planned Date Details Comments Source Diagnostic Test Pending 2022-11-30 00:00:00 CMP, serum or plasma [code = CMP, serum or plasma] [facility] Diagnostic Test Pending 2022-11-30 00:00:00 lipid panel, serum [code = lipid panel, serum] [facility] Diagnostic Test Pending 2022-11-30 00:00:00 CBC w/ auto diff [code = CBC w/ auto diff] [facility] Diagnostic Test Pending 2022-11-30 00:00:00 TSH, serum or plasma [code = TSH, serum or plasma] [facility] Diagnostic Test Pending 2022-11-30 00:00:00 urinalysis complete, reflex culture [code = urinalysis complete, reflex culture] [facility] Diagnostic Test Pending 2022-11-30 00:00:00 HbA1c (hemoglobin A1c), blood [code = HbA1c (hemoglobin A1c), blood] [facility] Diagnostic Test Pending 2022-11-30 00:00:00 RPR (rapid plasma reagin), serum [code = RPR (rapid plasma reagin), serum] [facility] Diagnostic Test Pending 2022-11-30 00:00:00 HIV (1+2) Ab screen, serum [code = HIV (1+2) Ab screen, serum] [facility] Diagnostic Test Pending 2022-11-30 00:00:00 CT + NG + TV, DNA, urine/swab [code = CT + NG + TV, DNA, urine/swab] [facility] Instructions [facility] dical Group Encounters Start Date/Time End Date/Time Encounter Type Admission Type Attending Clinicians Care Facility Care Department Encounter ID Source 2023-02-17 00:00:00 2023-02-17 00:00:00 Outpatient GC_GCBZW_Ka diyala_S [facility] [id number] [facility] 2022-11-30 11:06:00 2022-11-30 11:06:00 Outpatient COLTEN [facility]ITH [facility] [id number] [facility] 2022-11-30 00:00:00 2022-11-30 00:00:00 Outpatient Roderick [facility] [id number] [facility] 2022-11-30 00:00:00 2022-11-30 00:00:00 Colten Vaughn, 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 [facility] [address] [facility] [id number] [facility] 2022-11-20 00:00:00 2022-11-20 00:00:00 Outpatient Roderick [facility] [id number] [facility] 2022-11-20 00:00:00 2022-11-20 00:00:00 Outpatient [facility] [id number] [facility] Results Test Description Test Time Test Comments Results Resul t Comments Source culture,urine pres id [id number] 2022-12-02 08:28:00 [facility]ine [facility] pres id [id number] 07:34:00* Test Item Value Reference Range Interpretation Comme nts culture,urine (test code = culture,urine) >100,000 col/cc gram neg rods. id and sensitivity to follow. [facility] pres id [id number] 07:34:00* Test Item Value Reference Range Interpretation Comme nts culture,urine (test code = culture,urine) >100,000 col/cc gram neg rods. id and sensitivity to follow. [facility] [Presence] in Serum by [id number] 20:09:00* Test Item Value Reference Range Interpretation Comme nts RPR (test code = RPR) nonreactive nonreactive [facility]/[id number] 13:14:00* Test Item Value Reference Range Interpretation Comme nts CT (test code = CT) CT not detected NG (test code = NG) NG not detected [facility] + TV, DNA, urine/[id number] 13:14:00* Test Item Value Reference Range Interpretation Comme nts CT (test code = CT) CT not detected NG (test code = NG) NG not detected [facility] [id number] 12:50:00* Test Item Value Reference Range Interpretation Comme nts trichomonas vaginalis (test code = trichomonas vaginalis) TV not detected [facility] [id number] 12:50:00* Test Item Value Reference Range Interpretation Comme nts trichomonas vaginalis (test code = trichomonas vaginalis) TV not detected [facility] [id number] 12:50:00* Test Item Value Reference Range Interpretation Comme nts trichomonas vaginalis (test code = trichomonas vaginalis) TV not detected [facility] 1+2 Ab [Presence] in [id number] 12:11:00* Test Item Value Reference Range Interpretation Comme nts HIV P24 Ag (test code = HIV P24 Ag) non-reactive nonreactive HIV-1/2 Ab (test code = HIV- 1/2 Ab) non-reactive nonreactive [facility]-house[facility]2022-11-30 12:11:00* Test Item Value Reference Range Interpretation Comme nts HIV P24 Ag (test code = HIV P24 Ag) non-reactive nonreactive HIV-1/2 Ab (test code = HIV- 1/2 Ab) non-reactive nonreactive [facility] pres id [id number] 12:08:00* Test Item Value Reference Range Interpretation Comme nts culture,urine (test code = culture,urine) specimen has been received in lab and IS in progress. [facility] 2000 panel - Serum or Plasma 2022-11-30 12:03:00* Test Item Value Reference Range Interpretation Comme nts glucose (test code = glucose) 103 mg/dL 74-106 blood urea nitrogen (test co de = blood urea nitrogen) 14 mg/dL 6-20 osmolality calculated,serum (test code = osmolality calculated,serum) 276 mOsm/kg 280-300 L creatinine (test code = creatinine) 0.54 mg/dL 0.50-0.90 glomerular filtration rate ( test code = glomerular filtration rate) > 60.00 BUN/creatinine ratio (test c ode = BUN/creatinine ratio) 25.9 12.0-20.0 H sodium level (test code = so dium level) 138 mmol/L 135-145 potassium level (test code = potassium level) 4.0 mmol/L 3.5-5.2 chloride level (test code = chloride level) 101 mmol/L 98-108 CO2 (test code = CO2) 26 mmol/L 21-32 anion gap (test code = anion gap) 15.0 mEq/L 12.0-20.0 calcium level (test code = calcium level) 9.0 mg/dL 8.6-10.0 total protein (test code = t otal protein) 7.4 g/dL 6.6-8.7 albumin (test code = albumin) 3.8 g/dL 3.5-5.2 globulin (test code = globulin) 3.6 g/dL 1.5-4.5 A/G ratio (test code = A/G ratio) 1.1 >1.0 bilirubin,total (test code = bilirubin,total) 0.3 mg/dL 0.0-1.2 AST/SGOT (test code = AST/SGOT) 10 U/L 15-32 L ALT/SGPT (test code = ALT/SGPT) 17 U/L 0-33 alkaline phosphatase, total (test code = alkaline phosphatase, total) 141 U/L 35-105 H [facility] HospitalLipid 1996 panel - Serum or [id number] 12:03:00* Test Item Value Reference Range Interpretation Comme nts cholesterol level (test code = cholesterol level) 166 mg/dL 150-200 triglycerides level (test co de = triglycerides level) 50 mg/dL <150 HDL cholesterol (test code = HDL cholesterol) 50 mg/dL >65 L Cholesterol in LDL [Mass/vol ume] in Serum or Plasma (test code = 2089-1) 119 mg/dL <100 H cholesterol risk ratio (test code = cholesterol risk ratio) 3.320 [facility] HospitalThyrotropin [Units/volume] in Serum or [id number] 12:03:00* Test Item Value Reference Range Interpretation Comme nts thyroid stimulating hormone L (test code = thyroid stimulating hormone L) 1.93 uIU/mL 0.36-3.74 [facility]allipid [id number] 12:03:00* Test Item Value Reference Range Interpretation Comme nts cholesterol level (test code = cholesterol level) 166 mg/dL 150-200 triglycerides level (test co de = triglycerides level) 50 mg/dL <150 HDL cholesterol (test code = HDL cholesterol) 50 mg/dL >65 L Cholesterol in LDL [Mass/vol ume] in Serum or Plasma (test code = 2089-1) 119 mg/dL <100 H cholesterol risk ratio (test code = cholesterol risk ratio) 3.320 [facility] Hospitalthyroid stimulating hormone [id number] 12:03:00* Test Item Value Reference Range Interpretation Comme nts thyroid stimulating hormone L (test code = thyroid stimulating hormone L) 1.93 uIU/mL 0.36-3.74 [facility] HospitalHemoglobin A1c/Hemoglobin.total in [id number] 12:00:00* Test Item Value Reference Range Interpretation Comme nts Hemoglobin A1c/Hemoglobin.to tiffanie in Blood (test code = 4548-4) 5.7 % 4.0-6.0 [facility] HospitalUrinalysis complete W Reflex Culture panel - Urine 2022-11-30 11:44:00* Test Item Value Reference Range Interpretation Comme nts color, urine (test code = co ginger, urine) lt. yellow appearance, urine (test code = appearance, urine) cloudy clear urine glucose (test code = u rine glucose) negative negative bilirubin, urine (test code = bilirubin, urine) negative negative ketone, urine (test code = ketone, urine) negative negative specific gravity,urine (test code = specific gravity,urine) 1.025 1.003-1.030 blood urine (test code = blo od urine) negative negative pH,urine (test code = pH,urine) 6.000 5-9 protein urine (UA) (test cod e = protein urine (UA)) negative negative urobilinogen, urine (test co de = urobilinogen, urine) 0.2 E.U./dL 0.2-1.0 nitrate, urine (test code = nitrate, urine) positive negative A urine leukocyte esterase (te st code = urine leukocyte esterase) negative negative urine culture added? (test c ode = urine culture added?) yes [facility] [id number] 11:44:00* Test Item Value Reference Range Interpretation Comme nts color, urine (test code = co ginger, urine) lt. yellow appearance, urine (test code = appearance, urine) cloudy clear urine glucose (test code = u rine glucose) negative negative bilirubin, urine (test code = bilirubin, urine) negative negative ketone, urine (test code = ketone, urine) negative negative specific gravity,urine (test code = specific gravity,urine) 1.025 1.003-1.030 blood urine (test code = blo od urine) negative negative pH,urine (test code = pH,urine) 6.000 5-9 protein urine (UA) (test cod e = protein urine (UA)) negative negative urobilinogen, urine (test co de = urobilinogen, urine) 0.2 E.U./dL 0.2-1.0 nitrate, urine (test code = nitrate, urine) positive negative A urine leukocyte esterase (te st code = urine leukocyte esterase) negative negative RBC, urine (test code = RBC, urine) 0-3 0-5 WBC, urine (test code = WBC, urine) 3-4 0-5 epithelial cell (test code = epithelial cell) 6-10 0-5 bacteria, urine (test code = bacteria, urine) large none detect A urine culture added? (test c ode = urine culture added?) yes [facility] W Auto Differential panel - [id number] 11:34:00 * Test Item Value Reference Range Interpretation Comme nts white blood count (test code = white blood count) 9.4 K/uL 4.0-11.5 red blood count (test code = red blood count) 4.62 M/uL 3.80-5.20 hemoglobin (test code = hemoglobin) 12.0 g/dL 10.5-15.7 hematocrit (test code = hematocrit) 39.3 % 34.0-50.0 mean corpuscular volume (xochitl t code = mean corpuscular volume) 85.1 fL 86.0-100.0 L mean corpuscular hemoglobin (test code = mean corpuscular hemoglobin) 26.0 pg 26.2-33.4 L mean corpuscular HGB conc (t est code = mean corpuscular HGB conc) 30.5 g/dL 30.0-34.0 red cell distribution width (test code = red cell distribution width) 14.6 % 12.0-15.5 platelet count (test code = platelet count) 321 K/uL 165-450 mean platelet volume (test c ode = mean platelet volume) 9.7 fL 9.4-12.6 neutrophils % (test code = neutrophils %) 81.2 % 44.4-80.1 H Ig% (test code = Ig%) 0.4 % 0.0-0.4 lymphocyte% (test code = lymphocyte%) 13.7 % 10.0-50.0 mono % (test code = mono %) 3.7 % 3.6-12.0 eos % (test code = eos %) 0.7 % 0.0-5.4 basophil % (test code = baso franky %) 0.3 % 0.1-1.2 absolute neutrophil count (t est code = absolute neutrophil count) 7.66 K/uL 1.56-6.13 H Ig# (test code = Ig#) 0.04 K/uL 0.00-0.03 H lymph # (test code = lymph #) 1.29 K/uL 1.18-3.74 mono # (test code = mono #) 0.35 K/uL 0.24-0.86 eos # (test code = eos #) 0.07 K/uL 0.04-0.36 basophil # (test code = baso franky #) 0.03 K/uL 0.01-0.08 NRBC% (test code = NRBC%) 0 /100 WBC 0-0.2 NRBC# (test code = NRBC#) 0 K/uL [facility]
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
[2023-10-08] MEDS ORDERED: IBUPROFEN 200 MG TAB PO ONE (09:56)
[2023-10-08] MEDS ORDERED: IBUPROFEN 400 MG TAB ONE (09:56)
[2023-10-08] MEDS ORDERED: ACETAMINOPHEN 500 MG TAB ONE (09:56)
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
[2023-10-08] MEDS ORDERED: methocarbamoL 500 MG TAB ONE (10:25)
[2023-10-08 10:55] VITALS: BP 129/78; TEMP 97.8; O2SAT 98
== END 2023-10-08 10:33 | disposition home or self-care (01) ==
LOC: ER 09:20
DX: G44.319 Acute post-traumatic headache, not intractable (principal); S10.83XA Contusion of other specified part of neck, initial encounter; R07.9 Chest pain, unspecified; V49.49XA Driver injured in collision with other motor vehicles in traffic accident, initial encounter
CPT/HCPCS: 70450; 71045; 72125; 99284

== ENCOUNTER 2024-07-19 19:47 | Emergency (ER) | payer OTHER ==
--- OUTSIDE RECORDS SUMMARY | 2024-07-19 19:50 | XMS REPORT | Continuity of Care Document ---
Author Name Unknown Address [address] [place] [address] [address] [place] [address] [facility] Address [address] [address] [address] [place] [address] Care Team Providers Care Breeder Hen Service Technician Name Role Phone PEYTON EDWARD Primary Care Physician MAMADOU Mcintyre Attending Clinician Unavail MAMADOU Cruz Attending Clinician Unavail Mamadou Cruz MD Attending Clinician [email or web address]_S Attending Clinician Unavaila MARY JANE To Attending Clinician Unavailable Shield Attending Clinician Unavailable [email or web address]_S Admitting Clinician Unavaila ble Shield Admitting Clinician Unavailable Payers Payer Name Policy Type Policy Number Effective Date Expirati on Date Source [employer] O [id number] 2022 00:00:00 [facility]LY [facility] [id number] 2022 00:00:00 Allergies, Adverse Reactions, Alerts Allergy Name Allergy Type Status Severity Reaction(s) Onset Date Inactive Date Treating Clinician Comments Source NO KNOWN ALLERGIE S Drug Class Active [facility] Social History Social Habit Start Date Stop Date Quantity Comments Source Sexual orientation [facility] Sex assigned at 1985 00:00:00 1985 00:00:00 [facility] Smoking Status Start Date Stop Date Source Tobacco smoking consumption unknown [facility] Former Smoker [facility] Medications Ordered Medication Name Filled Medication Name Start Date Stop Date Current Medication? Ordering Clinician Indication Dosage Frequency Signature (SIG) Comments Components Source nortriptyli ne 25 mg capsule 01-17 00:00: 00 Yes [id number] 25mg Take 1 capsule by mouth in the morning. [facility] Macrobid 100 mg capsule Take 1 capsule every 12 hours by oral route for 7 days. Macrobid 100 mg capsule Take 1 capsule every 12 hours by oral route for 7 days. No 1capsul e(s) Q12H Macrobid 100 mg capsule Take 1 capsule every 12 hours by oral route for 7 days. [facility] Vital Signs Vital Name Observation Time Observation Value Comments S ource Systolic blood pressure 2024-01-18 18:53:00 123 mm[Hg] [facility] Diastolic blood pressure 2024-01-18 18:53:00 85 mm[Hg] [facility] Heart rate 2024-01-18 18:53:00 89 /min [facility] Respiratory rate 2024-01-18 18:53:00 16 /min [facility] Body height 2024-01-18 18:53:00 152.4 cm [facility] Body weight 2024-01-18 18:53:00 105.008 kg [facility] BMI 2024-01-18 18:53:00 45.21 kg/m2 [facility] Oxygen saturation in Arterial blood by Pulse oximetry 2024-01-18 18:53:00 97 /min [facility] BMI (Body Mass Index) 2022-11-30 00:00:00 45.3 kg/m2 [facility] Height 2022-11-30 00:00:00 60 [in_i] [facility] BP Systolic 2022-11-30 00:00:00 120 mm[Hg] [facility] BP Diastolic 2022-11-30 00:00:00 85 mm[Hg] [facility] Body Weight 2022-11-30 00:00:00 3712 [oz_av] [facility] Procedures Procedure Date / Time Performed Performing Clinicia n Source Hysterectomy 2014-04-23 00:00:00 [facility] Delivery [facility] Plan of Care Planned Activity Planned Date Details Comments Source Diagnostic Test Pending 2022-11-30 00:00:00 CMP, serum or plasma [code = CMP, serum or plasma] [facility] Diagnostic Test Pending 2022-11-30 00:00:00 lipid panel, serum [code = lipid panel, serum] [facility] Diagnostic Test Pending 2022-11-30 00:00:00 CBC w/ auto diff [code = CBC w/ auto diff] [facility] Diagnostic Test Pending 2022-11-30 00:00:00 TSH, serum or plasma [code = TSH, serum or plasma] [facility] Diagnostic Test Pending 2022-11-30 00:00:00 urinalysis complete, reflex culture [code = urinalysis complete, reflex culture] [facility] Diagnostic Test Pending 2022-11-30 00:00:00 HbA1c (hemoglobin A1c), blood [code = HbA1c (hemoglobin A1c), blood] [facility] Diagnostic Test Pending 2022-11-30 00:00:00 RPR (rapid plasma reagin), serum [code = RPR (rapid plasma reagin), serum] [facility] Diagnostic Test Pending 2022-11-30 00:00:00 HIV (1+2) Ab screen, serum [code = HIV (1+2) Ab screen, serum] [facility] Diagnostic Test Pending 2022-11-30 00:00:00 CT + NG + TV, DNA, urine/swab [code = CT + NG + TV, DNA, urine/swab] [facility] Instructions [facility] Encounters Start Date/Time End Date/Time Encounter Type Admission Type Attending [facility] Care Facility Care Department Encounter ID Source 2024-02-18 15:20:00 2024-02-18 15:20:00 Outpatient MAMADOU DIALLO [facility] [id number] [facility] 2024-02-08 14:40:00 2024-02-08 14:40:00 Outpatient MAMADOU DIALLO [facility] [id number] [facility] 2024-01-18 00:00:00 2024-01-18 16:56:04 Telephone [facility]ad[facility] [id number] [facility] 2024-01-18 14:00:00 2024-01-18 15:38:15 Office Visit Mamadou Pizano [facility] [id number] [facility] 2024-01-18 14:00:00 2024-01-18 15:38:15 Outpatient R KISHOREMAMADOU [facility]ARD [facility] [id number] [facility] 2023-02-17 00:00:00 2023-02-17 00:00:00 Outpatient GC_GCBZW_Ka diyala_S [facility] [id number] [facility] 2022-11-30 11:06:00 2022-11-30 11:06:[address] [facility] [id number] [facility] 2022-11-30 00:00:00 2022-11-30 00:00:00 Outpatient Shield [facility] [id number] [facility] 2022-11-30 00:00:00 2022-11-30 00:00:00 Mary Jane Vaughn, TAX CONSULTANT: [address], [address], [place] [address] , Ph. [facility] [id number] [facility] 2022-11-20 00:00:00 2022-11-20 00:00:00 [place] [id number] [facility] 2022-11-20 00:00:00 2022-11-20 00:00:00 [place] [id number] [facility] Results Test Description Test Time Test Comments Results Result Co mments Source [facility] [Presence] in Serum by [id number] 20:09:00* Test Item Value Reference Range Interpretation Comme nts RPR (test code = RPR) nonreactive nonreactive [facility]/[id number] 13:14:00* Test Item Value Reference Range Interpretation Comme nts CT (test code = CT) CT not detected NG (test code = NG) NG not detected [facility] + TV, DNA, urine/[id number] 13:14:00* Test Item Value Reference Range Interpretation Comme nts CT (test code = CT) CT not detected NG (test code = NG) NG not detected [facility] [id number] 12:50:00* Test Item Value Reference Range Interpretation Comme nts trichomonas vaginalis (test code = trichomonas vaginalis) TV not detected [facility]2 Ab [Presence] in [id number] 12:11:00* Test Item Value Reference Range Interpretation Comme nts HIV P24 Ag (test code = HIV P24 Ag) non-reactive nonreactive HIV-1/2 Ab (test code = HIV- 1/2 Ab) non-reactive nonreactive [facility]2022-11-30 12:11:00* Test Item Value Reference Range Interpretation Comme nts HIV P24 Ag (test code = HIV P24 Ag) non-reactive nonreactive HIV-1/2 Ab (test code = HIV- 1/2 Ab) non-reactive nonreactive [facility],urine pres id [id number] 12:08:00* Test Item Value Reference Range Interpretation Comme nts culture,urine (test code = culture,urine) specimen has been received in lab and IS in progress. [facility]Comprehensive metabolic 2000 panel - Serum or [...] alkaline phosphatase, total) 141 U/L 35-105 H [facility] HospitalLipid 1996 panel - Serum or [id number] 12:03:00* Test Item Value Reference Range Interpretation [...] (test code = cholesterol risk ratio) 3.320 [facility] HospitalThyrotropin [Units/volume] in Serum or [id number] 12:03:00* Test Item Value Reference Range Interpretation Comme nts thyroid stimulating hormone L (test code = thyroid stimulating hormone L) 1.93 uIU/mL 0.36-3.74 [facility]allipid [id number] 12:03:00* Test Item Value Reference Range Interpretation [...] (test code = cholesterol risk ratio) 3.320 [facility] Hospitalthyroid stimulating hormone [id number] 12:03:00* Test Item Value Reference Range Interpretation Comme nts thyroid stimulating hormone L (test code = thyroid stimulating hormone L) 1.93 uIU/mL 0.36-3.74 [facility] HospitalHemoglobin A1c/Hemoglobin.total in [id number] 12:00:00* Test Item Value Reference Range Interpretation Comme nts Hemoglobin A1c/Hemoglobin.to tiffanie in Blood (test code = 4548-4) 5.7 % 4.0-6.0 [facility] HospitalUrinalysis complete W Reflex Culture panel - [...] c ode = urine culture added?) yes [facility] [id number] 11:44:00* Test Item Value Reference Range Interpretation [...] c ode = urine culture added?) yes [facility] W Auto Differential panel - [id number] 11:34:00 * Test Item Value Reference Range [...] NRBC# (test code = NRBC#) 0 K/uL [facility] Notes Date/Time Note Provider Source 2024-01-18 16:54:31 Send medical records release forms to [facility] P) [phone] F)[phone] [facility]
[2024-07-19] MEDS ORDERED: NA CHLORIDE 0.9% 1,000 ML ONE (20:16)
[2024-07-19 20:35] LABS: Absolute Basophils 0.1 K/uL (0-0.5); Absolute Eosinophils 0.1 K/uL (0-0.5); Absolute Monocytes 0.4 K/uL (0.1-1.3); Absolute Neutrophil 6.9 K/uL (1.8-8.0); Basophils % 0.6 % (0-1.3); Eosinophils % 1.2 % (0-4.4); Hematocrit 32.3 % (36.0-45.0); Hemoglobin 10.4 g/dL (12.0-15.0); Lymphocytes % 12.3 % (15.3-44.8); MCH 26.4 pg (27.0-35.0); MCHC 32.2 g/dL (32.0-36.0); MCV 81.8 fL (80-100); MPV 7.9 fL (7.6-11.3); Monocytes % 4.4 % (3.3-12.3); Neutrophils % 81.5 % (41.7-73.7); Nucleated Red Blood Cells % 0.1 % (0-0); Platelets 320 thou/uL (152-406); RBC Red Blood Cell Count 3.95 M/uL (3.86-4.86); Red Cell Distribution Width 14.8 % (12.1-15.2)
[2024-07-19 20:53] LABS: ALT/SGPT 19 U/L (13-56); Albumin/Globulin Ratio 0.9 (1.1-1.8); Alkaline Phosphatase 103 U/L (45-117); Anion Gap 6.7 mEq/L (5.0-15.0); BUN Blood Urea Nitrogen 15 mg/dL (7-18); Bicarbonate 28 mEq/L (21-32); Bilirubin Total 0.3 mg/dL (0.2-1.0); Globulin 3.5 g/dL (2.3-3.5); Glomerular Filtration Rate 120 ml/min (=/>90); Glucose Level 100 mg/dL (74-106); Potassium 3.7 mEq/L (3.5-5.1); Protein, Total 6.5 g/dL (6.4-8.2); Sodium Level 139 mEq/L (136-145)
[2024-07-19 20:57] LABS: AST/SGOT < 10 U/L (15-37)
[2024-07-19 21:02] LABS: Influenza A Ag Negative; Influenza B Ag Negative; SARS-CoV-2 Antigen Rapid Res Negative (Negative)
--- NOTE | 2024-07-19 21:26 | RAD REPORT ---
EXAMINATION: TWO VIEW CHEST XR CLINICAL INDICATION: Female, 38 years old. [facility] Bed: TECHNIQUE: 2 view radiographs of the chest were performed. COMPARISON: 10/08/2023 FINDINGS: The lungs are well inflated and clear. No pneumothorax or sizable effusion. The heart is normal in si ze. Mediastinal contours are unremarkable. IMPRESSION: No acute or significant abnormalities.
[2024-07-19] MEDS ORDERED: ONDANSETRON 4 MG/2 ML VIAL ONE (22:51)
[2024-07-19] MEDS ORDERED: KETOROLAC 30 MG/ML INJ ONE (22:51)
--- NOTE | 2024-07-19 23:00 | EDPHYS ---
Physician Documentation [facility] Name: Fang Ewing Age: 38 yrs Sex: Female : 1985 Arrival Date: 07/19/2024 Time: 19:47 Bed DX1 Private MD: ED Physician Moisés Vallejo HPI: 07/19 22:55 This 38 yrs old Female presents to ER via EMS with complaints of Headache, adeola Fever, Chills, Nausea. 22:55 The patient complains of pain to the forehead, left frontal area and right frontal adeola area. The patient describes the headache as aching, constant. Onset: The symptoms/episode began/occurred 1 day(s) ago. Associated signs and symptoms: Pertinent positives: nausea, sinus congestion, weakness. Severity of symptoms: At its worst the pain was mild, in the emergency department the pain is unchanged. Headache History: The patient has had previous headaches and this one is similar to previous episodes. The patient has experienced similar episodes in the past, several times. CPS TEAM LEAD: 20:16 LMP N/A - Hysterectomy, Not cm10 Historical: - Allergies: 20:15 No Known Allergies; cm10 - Home Meds: 20:15 None [Active]; cm10 - PMHx: 20:15 Migraine; cm10 - PSHx: 20:15 section; Total abdominal hysterectomy; cm10 - Immunization history:: Adult Immunizations up to date. - Infectious Disease History:: Denies. - Social history:: Smoking status: Reported history of juuling and/or vaping. - Family history:: not pertinent. ROS: 22:55 Constitutional: Negative for fever, chills, and weight loss, Eyes: Negative for injury, adeola pain, redness, and discharge, ENT: Negative for injury, pain, and discharge, Neck: Negative for injury, pain, and swelling, Cardiovascular: Negative for chest pain, palpitations, and edema, Respiratory: Negative for shortness of breath, cough, wheezing, and pleuritic chest pain, Abdomen/GI: Negative for abdominal pain, nausea, vomiting, diarrhea, and constipation, Back: Negative for injury and pain, : Negative for injury, bleeding, discharge, and swelling, MS/Extremity: Negative for injury and deformity, Skin: Negative for injury, rash, and discoloration, Neuro: Negative for headache, weakness, numbness, tingling, and seizure, Psych: Negative for depression, anxiety, suicide ideation, homicidal ideation, and hallucinations, Allergy/Immunology: Negative for hives, rash, and allergies, Endocrine: Negative for neck swelling, polydipsia, polyuria, polyphagia, and marked weight changes, Hematologic/Lymphatic: Negative for swollen nodes, abnormal bleeding, and unusual bruising, Exam: 22:56 Constitutional: This is a well developed, well nourished patient who is awake, alert, adeola and in no acute distress. Head/Face: Normocephalic, atraumatic. Eyes: Pupils equal round and reactive to light, extra-ocular motions intact. Lids and lashes normal. Conjunctiva and sclera are non-icteric and not injected. Cornea within normal limits. Periorbital areas with no swelling, redness, or edema. ENT: Nares patent. No nasal discharge, no septal abnormalities noted. Tympanic membranes are normal and external auditory canals are clear. Oropharynx with no redness, swelling, or masses, exudates, or evidence of obstruction, uvula midline. Mucous membranes moist. Neck: Trachea midline, no thyromegaly or masses palpated, and no cervical lymphadenopathy. Supple, full range of motion without nuchal rigidity, or vertebral point tenderness. No Meningismus. Chest/axilla: Normal chest wall appearance and motion. Nontender with no deformity. No lesions are appreciated. Cardiovascular: Regular rate and rhythm with a normal S1 and S2. No gallops, murmurs, or rubs. Normal PMI, no JVD. No pulse deficits. Respiratory: Lungs have equal breath sounds bilaterally, clear to auscultation and percussion. No rales, rhonchi or wheezes noted. No increased work of breathing, no retractions or nasal flaring. Abdomen/GI: Soft, non-tender, with normal bowel sounds. No distension or tympany. No guarding or rebound. No evidence of tenderness throughout. Back: No spinal tenderness. No costovertebral tenderness. Full range of motion. Skin: Warm, dry with normal turgor. Normal color with no rashes, no lesions, and no evidence of cellulitis. MS/ Extremity: Pulses equal, no cyanosis. Neurovascular intact. Full, normal range of motion., bilateral aka Neuro: Awake and alert, GCS 15, oriented to person, place, time, and situation. Cranial nerves II-XII grossly intact. Motor strength 5/5 in all extremities. Sensory grossly intact. Cerebellar exam normal. Normal gait. Psych: Awake, alert, with orientation to person, place and time. Behavior, mood, and affect are within normal limits. 22:56 Neck: ROM/movement: is normal, is supple, without pain, no range of motions limitations, no meningismus, no nuchal rigidity, negative Brudzinski's sign, negative Kernig's sign, 22:56 Musculoskeletal/extremity: DVT Exam: No signs of deep vein thrombosis. no pain, no swelling, no tenderness, negative Homans' sign noted on exam, no appreciated bluish discoloration, no erythema, no increased warmth, Vital Signs: 20:15 BP 118 / 79; Pulse 72; Resp 15; Temp 98(O); Pulse Ox 97% on R/A; Weight 104.33 kg; cm10 Height 5 ft. 0 in. ; Pain 3/10; 23:20 BP 127 / 74; Pulse 79; Resp 16 S; Temp 97.6(O); Pulse Ox 99% on R/A; lg3 20:15 Body Mass Index 44.92 (104.33 kg, 152.4 cm) cm10 20:15 Pain Scale: Adult cm10 Dex Coma Score: 22:57 Eye Response: spontaneous(4). Motor Response: obeys commands(6). Verbal Response: adeola oriented(5). Total: 15. MDM: 20:11 Medical Screening Exam initiated adeola 22:57 Differential diagnosis: hypertensive headache, migraine, sinusitis, temporal arteritis, adeola tension headache. Data reviewed: vital signs, nurses notes, lab test result(s), radiologic studies. Consideration of Admission/Observation Patient was admitted/placed on observation. Escalation of care including admission/observation considered. I considered the following discharge prescriptions or medication management in the emergency department Medications were administered in the Emergency Department. See MAR. Independent interpretation of the following test(s) in the Emergency Department X-Ray: My interpretation is cxr neg. 07/19 20:14 Order name: CBC with Diff; Complete Time: 22:46 [facility] 07/19 20:14 Order name: Comprehensive Metabolic Panel; Complete Time: 22:46 [facility] 07/19 20:14 Order name: COVID-19 Ag + Flu A+B Ag; Complete Time: 22:46 adeola 07/19 20:14 Order name: Chest Pa And Lat (2 Views) XRAY; Complete Time: 22:46 adeola Administered Medications: 20:14 Drug: NS 0.9% IV 1000 ml IV at 1000 ml once; to be given as a bolus over 60 minutes cm10 Route: IV; Rate: 1000 ml; Site: left antecubital; 23:19 Follow up: Response: No adverse reaction; IV Status: Completed infusion; IV Intake: lg3 1000ml 20:14 Not Given (Duplicate Order): [id number] mg PO once cm10 23:19 Drug: Ondansetron IVP 4 mg IVP once; over 2 minutes Route: IVP; Site: left antecubital; lg3 23:19 Follow up: Response: No adverse reaction; Medication administered at discharge. lg3 23:19 Drug: Ketorolac IVP 30 mg IVP once Route: IVP; Site: left antecubital; lg3 23:19 Follow up: Response: No adverse reaction; Medication administered at discharge. lg3 Disposition Summary: 07/19/24 22:59 Discharge Ordered Notes: Location: Home adeola Problem: new adeola Symptoms: have improved adeola Condition: Stable adeola Diagnosis - Acute upper respiratory infection, unspecified adeola - Fever, unspecified adeola - Nausea adeola - Headache adeola Followup: adeola - With: Private Physician - When: 2 - 3 days - Reason: Recheck today's complaints, Continuance of care, Re-evaluation by your physician Discharge Instructions: - Discharge Summary Sheet adeola - Fever, Adult adeola - Nausea and Vomiting, Adult adeola - Upper Respiratory Infection, Adult adeola - Cool Mist Vaporizer adeola - Upper Respiratory Infection, Adult, [id number] adeola - Cough, Adult adeola Forms: - Medication Reconciliation Form adeola - Antibiotic Education adeola - Prescription Opioid Use adeola - Patient Portal Instructions adeola - Leadership Thank You Letter adeola - Work release form vk Prescriptions: - ondansetron 4 mg Oral Tablet,disintegrating - take 1 tablet ORAL route every 6-8 hours for 5 days prn; 20 tablet; Refills: 0, adeola Product Selection Permitted - Diclofenac Sodium 75 mg Oral tablet, delayed release (enteric coated) - take 1 tablet ORAL route 2 times per day; 20 tablet; Refills: 0, Product adeola Selection Permitted - Zithromax Z-Fernando 250 mg Oral Tablet - take 1 tablet ORAL route as directed for 5 days Day 1 - take two (2) tablets adeola one time. Day 2, 3, 4 , 5 take one (1) tablet once daily.; 6 tablet; Refills: 0, Product Selection Permitted Signatures: Dispatcher [employer] EDMS Moisés Vallejo MD MD cha Able, Lacie, RN RN lg3 Jenny Duarte RN RN cm10 Corrections: (The following items were deleted from the chart) 20:15 20:15 CBC+H.LAB.BRZ ordered. EDMS EDMS 20:15 20:15 COMPREHENSIVE METABOLIC PANEL+C.LAB.BRZ ordered. EDMS EDMS 20:15 20:15 Urinalysis+U.LAB.BRZ ordered. EDMS EDMS 20:15 20:15 COVID-19 Ag + Flu A+B Ag+I.LAB.BRZ ordered. EDMS EDMS 20:20 20:15 Test, Urine+UC.LAB.BRZ ordered. EDMS EDMS
--- NOTE | 2024-07-19 23:00 | ER ---
Nurse's Notes [facility] Name: Fang Ewing Age: 38 yrs Sex: Female : 1985 Arrival Date: 07/19/2024 Time: 19:47 Bed DX1 Private MD: Diagnosis: Acute upper respiratory infection, unspecified;Fever, unspecified;Nausea;Headache Presentation: 07/19 19:57 Onset of symptoms was July 17, 2024. Care prior to arrival: Medication(s) given: cm10 Tylenol, 1000 mg, REGLAN 10MG IV initiated. 20 GA, in the right forearm. 19:57 Method Of Arrival: EMS: [facility] cm10 20:15 Chief complaint: EMS states: CALLED DUE TO PATIENT HAVING HEADACHE. PT REPORTS CHILLS, cm10 NAUSEA AND FEVER. Coronavirus screen: Client denies travel out of the [place] in the last 14 days. Ebola Screen: Patient denies travel to an Ebola-affected area in the 21 days before illness onset. Initial Sepsis Screen: Does the patient meet any 2 criteria? No. Patient's initial sepsis screen is negative. Does the patient have a suspected source of infection? No. Patient's initial sepsis screen is negative. Risk Assessment: Do you want to hurt yourself or someone else? Patient reports no desire to harm self or others. 20:15 Acuity: BAR 3 cm10 Triage Assessment: 20:16 General: Appears in no apparent distress. uncomfortable, Behavior is calm, cooperative. cm10 Neuro: No deficits noted. Level of Consciousness is awake, alert, obeys commands, Oriented to person, place, time, situation, Appropriate for age. Respiratory: No deficits noted. Airway is patent Respiratory effort is even, unlabored, Respiratory pattern is regular, symmetrical. PLATINUM SMITH: 20:16 LMP N/A - Hysterectomy, Not cm10 Historical: - Allergies: 20:15 No Known Allergies; cm10 - Home Meds: 20:15 None [Active]; cm10 - PMHx: 20:15 Migraine; cm10 - PSHx: 20:15 section; Total abdominal hysterectomy; cm10 - Immunization history:: Adult Immunizations up to date. - Infectious Disease History:: Denies. - Social history:: Smoking status: Reported history of juuling and/or vaping. - Family history:: not pertinent. Screenin:20 [facility] ED Fall Risk Assessment (Adult) History of falling in the last 3 months, lg3 including since admission No falls in past 3 months (0 pts) Confusion or Disorientation No (0 pts) Intoxicated or Sedated No (0 pts) Impaired Gait No (0 pts) Mobility Assist Device Used No (0 pt) Altered Elimination No (0 pt) Score/Fall Risk Level 0 - 2 = Low Risk Oriented to surroundings, Maintained a safe environment, Educated pt \T\ family on fall prevention, incl call for assistance when getting out of bed, Assessed \T\ reinforced patient's understanding of fall precautions. Abuse screen: Denies threats or abuse. Denies injuries from another. Nutritional screening: No deficits noted. Tuberculosis screening: No symptoms or risk factors identified. Assessment: 23:20 General: Appears in no apparent distress. comfortable, Behavior is calm, cooperative. lg3 Pain: Complains of pain in forehead Pain does not radiate. Pain currently is 5 out of 10 on a pain scale. Neuro: No deficits noted. Castillo Agitation-Sedation Scale (RASS): 0 - Alert and Calm Level of Consciousness is awake, alert, obeys commands, Oriented to person, place, time, situation, Reports headache frontal area. Cardiovascular: No deficits noted. Denies chest pain, shortness of breath, Capillary refill < 3 seconds Clubbing of nail beds is absent JVD is absent Patient's skin is warm and dry. Respiratory: No deficits noted. Reports cough that is Airway is patent Respiratory effort is even, unlabored, Respiratory pattern is regular, symmetrical, Breath sounds are clear bilaterally. GI: No deficits noted. Abdomen is round non-distended, obese, Reports nausea. : No signs and/or symptoms were reported regarding the genitourinary system. EENT: No deficits noted. No signs and/or symptoms were reported regarding the EENT system. Derm: No deficits noted. No signs and/or symptoms reported regarding the dermatologic system. Skin is intact, is healthy with good turgor, Skin is dry, Skin is normal, Skin temperature is warm. Musculoskeletal: No deficits noted. Circulation, motion, and sensation intact. Range of motion: intact in all extremities. Vital Signs: 20:15 BP 118 / 79; Pulse 72; Resp 15; Temp 98(O); Pulse Ox 97% on R/A; Weight 104.33 kg; cm10 Height 5 ft. 0 in. ; Pain 3/10; 23:20 BP 127 / 74; Pulse 79; Resp 16 S; Temp 97.6(O); Pulse Ox 99% on R/A; lg3 20:15 Body Mass Index 44.92 (104.33 kg, 152.4 cm) cm10 20:15 Pain Scale: Adult cm10 Dex Coma Score: 22:57 Eye Response: spontaneous(4). Motor Response: obeys commands(6). Verbal Response: adeola oriented(5). Total: 15. ED Course: 19:57 Patient arrived in ED. cm10 20:11 Moisés Vallejo MD is Attending Physician. adeola 20:15 Triage completed. cm10 20:16 Arm band placed on right wrist. Patient placed in an exam room, on a stretcher. cm10 20:24 Andreas Rivas, RN is Primary Nurse. rg5 20:28 Comprehensive Metabolic Panel Sent. cm10 20:28 CBC with Diff Sent. cm10 20:28 COVID-19 Ag + Flu A+B Ag Sent. cm10 20:28 Maintain EMS IV. Dressing intact. Good blood return noted. Site clean \T\ dry. Gauge \T\ cm 10 site: 20g right ac. Flushed with 10 mL NS. 20:36 Chest Pa And Lat (2 Views) XRAY In Process Unspecified. EDMS 23:20 Patient has correct armband on for positive identification. lg3 23:20 No provider procedures requiring assistance completed. IV discontinued, intact, lg3 bleeding controlled, No redness/swelling at site. Pressure dressing applied. Administered Medications: 20:14 Drug: NS 0.9% IV 1000 ml IV at 1000 ml once; to be given as a bolus over 60 minutes cm10 Route: IV; Rate: 1000 ml; Site: left antecubital; 23:19 Follow up: Response: No adverse reaction; IV Status: Completed infusion; IV Intake: lg3 1000ml 20:14 Not Given (Duplicate Order): [id number] mg PO once cm10 23:19 Drug: Ondansetron IVP 4 mg IVP once; over 2 minutes Route: IVP; Site: left antecubital; lg3 23:19 Follow up: Response: No adverse reaction; Medication administered at discharge. lg3 23:19 Drug: Ketorolac IVP 30 mg IVP once Route: IVP; Site: left antecubital; lg3 23:19 Follow up: Response: No adverse reaction; Medication administered at discharge. lg3 Medication: 23:20 VIS not applicable for this client. lg3 Intake: 23:19 IV: 1000ml; Total: 1000ml. lg3 Outcome: 22:59 Discharge ordered by . adeola 23:20 Discharged to home ambulatory, with significant other, lg3 23:20 Condition: stable 23:20 Discharge instructions given to patient, Instructed on discharge instructions, follow up and referral plans. medication usage, Demonstrated understanding of instructions, follow-up care, medications, Prescriptions given X 3, 23:22 Patient left the ED. lg3 Signatures: Dispatcher [employer] EDMS Moisés Vallejo MD MD cha Able, Lacie, RN RN lg3 Jenny Duarte, RN RN cm10 Andreas Rivas, RN RN rg5
[2024-07-19 23:53] VITALS: BP 127/74; TEMP 97.6; O2SAT 99
== END 2024-07-19 23:22 | disposition home or self-care (01) ==
LOC: ER 19:47
DX: J06.9 Acute upper respiratory infection, unspecified (principal); R51.9 Headache, unspecified; R11.0 Nausea; Z11.52 Encounter for screening for COVID-19
CPT/HCPCS: 85025; 36415; 80053; 71046; 87428; J2405; J7030; 96361; 96374; 96375; 99284